=== PATIENT | female | born 1965 | race Caucasian/White ===

== ENCOUNTER 2019-05-05 21:39 | Inpatient (IN) | payer OTHER ==
[~2019-05-05] VITALS: Ht 162.6 cm; Wt 102.8 kg
[2019-05-05 21:43] VITALS: BP 149/104
[2019-05-05 22:24] LABS: BE(vivo) -1.7 mmol/L (-2 to +3); HCO3 25.5 mmol/L (22.0-26.0); PCO2 VENOUS 53.6 mmHg (41.0-51.0); PO2 VENOUS 37.6 mmHg (35.0-45.0)
[2019-05-05 22:36] LABS: ABSOLUTE NEUTROPHILS 9.1 thou/uL (1.4-8.2); BASOPHILS 0.6 % (0.0-2.0); EOSINOPHILS 0.6 % (0.0-3.0); HEMATOCRIT 40.6 % (37.0-47.0); HEMOGLOBIN 12.8 gm/dL (12.0-15.0); LYMPHOCYTES 38.8 % (24.0-44.0); MCH 26.5 pg (26.0-34.0); MCHC 31.6 g/dL (28.0-37.0); PLATELET COUNT 196 thou/uL (150-400); RBC 4.83 mil/uL (4.20-5.00); RDW 16.3 % (10.5-14.5)
[2019-05-05 22:47] LABS: URINE BILIRUBIN NEGATIVE (Negative); URINE BLOOD 1+ (Negative); URINE CLARITY CLEAR; URINE COLOR YELLOW; URINE GLUCOSE-RANDOM* 3+ (Negative); URINE KETONES NEGATIVE (Negative); URINE LEUKOCYTES-REFLEX NEGATIVE (Negative); URINE NITRITE-REFLEX NEGATIVE (Negative); URINE PROTEIN (DIPSTICK) 1+ (Negative); URINE SPECIFIC GRAVITY <= 1.005 (1.005-1.035); URINE UROBILINOGEN 0.2 E.U./dl (0.2-1.0)
[2019-05-05 22:54] LABS: SQUAMOUS 0-3 Few /LPF (0-3)
[2019-05-05 22:55] LABS: BACTERIA-REFLEX 1-9 Few /HPF (None Seen); CASTS None Seen /LPF (None Seen); CRYSTALS None Seen /LPF (None Seen); MUCUS None Seen strn/LPF (None Seen); URINE RBC 0-2 Rare /HPF (0-2); URINE WBC-REFLEX 6-15 Few /HPF (0-5); WBC CLUMPS Occasional (None Seen)
[2019-05-05] MEDS ORDERED: LIPITOR80 MG PO (22:56)
[2019-05-05] MEDS ORDERED: METFORMIN HCL1000 MG PO (22:56)
[2019-05-05] MEDS ORDERED: AMITRIPTYLINE H25 M2 PO (22:57)
[2019-05-05] MEDS ORDERED: SERTRALINE HCL100 MG PO (22:57)
[2019-05-05] MEDS ORDERED: AMARYL4 MG PO (22:57)
[2019-05-05] MEDS ORDERED: LOPRESSOR100 M1 PO (22:58)
[2019-05-05] MEDS ORDERED: LOSARTAN POTAS100 MG PO (22:58)
[2019-05-05] MEDS ORDERED: TOPROL XL100 MG PO (22:59)
[2019-05-05 23:00] LABS: CALCIUM 9.2 mg/dL (8.5-10.1); CREATININE 1.3 mg/dL (0.6-1.0); POTASSIUM 3.3 mmol/L (3.5-5.1); TOTAL BILIRUBIN 0.8 mg/dL (<0.1-1.0); TOTAL PROTEIN 8.8 g/dL (6.4-8.2)
[2019-05-05 23:31] LABS: ANISOCYTOSIS 1+; LARGE PLATELETS FEW
[2019-05-06] VITALS (8 sets, daily range): BP systolic 117–158; BP diastolic 66–90
--- NOTE | 2019-05-06 00:10 | NUR ---
ED NURSE CALLED TO GIVE REPORT TO INPATIENT NURSE AT THIS TIME.
[2019-05-06 06:09] LABS: HEMATOCRIT 33.7 % (37.0-47.0); MCH 26.5 pg (26.0-34.0); MCHC 31.7 g/dL (28.0-37.0); MCV 83.6 fL (80.0-100.0); RBC 4.03 mil/uL (4.20-5.00); RDW 15.8 % (10.5-14.5); WBC 10.7 thou/uL (4.0-11.0)
[2019-05-06 06:22] LABS: HEMOGLOBIN 10.7 gm/dL (12.0-15.0)
--- NOTE | 2019-05-06 06:32 | NUR ---
PT ARRIVED FROM ER VIA CART. PLACED IN ROOM 359. ADMISSION ASSESSMENTS COMPLETED. REPORTEDLY IN AFIB WITH RVR WITH RATES 170'S UPON ARRIVING TO ER. UPON ARRIVAL TO THE FLOOR PT NOTED TO BE IN SINUS RHYTHM WITH RATE 80'S. DID TITRATE OFF CARDIZEM DRIP BY 0330. PT DENIES ANY CHEST PAIN/DISCOMFORT OR SOA.
[2019-05-06 06:41] LABS: ANION GAP 11 mmol/L (7-16); BUN 13 mg/dL (7-18); CALCIUM 8.1 mg/dL (8.5-10.1); CHLORIDE 102 mmol/L (98-107); CHOLESTEROL 152 mg/dL (<200); CO2 26 mmol/L (21-32); CREATININE 0.9 mg/dL (0.6-1.0); GLUCOSE 275 mg/dL (74-106); HDL CHOLESTEROL 27 mg/dL (>40); LDL CHOLESTEROL 60 mg/dL (<100); MAGNESIUM 1.5 mg/dL (1.8-2.4); POTASSIUM 3.7 mmol/L (3.5-5.1); SODIUM 139 mmol/L (136-145); TC:HDL 5.6 Ratio (Not establshd); TRIGLYCERIDE 327 mg/dL (<150); VLDL 65 mg/dL (<40)
--- NOTE | 2019-05-06 07:41 | EKG ---
[address] [place] [address] ELECTROCARDIOGRAM REPORT Name: KYMBERLY CHRISTIAN Room #: 359-P ADM IN M.R.#: [id number] Admission: 05/05/19 Attend Phys: Shanika Khan MD Discharge: Date of : 67 Report #: [id number] THIS REPORT FOR: //name// [facility] ED Test Date: 2019-05-05 Test Time: 21:56:59 Pat Name: KYMBERLY CHRISTIAN Department: Room: 359 Gender: F Turf Manager: KELSIE : 1965 Requested By: Gualberto Ramirez Order Number: [id number] MD: Jerzy Shine Measurements Intervals [place] Rate: 157 P: NM: QRS: 49 QRSD: 85 T: 248 QT: 269 QTc: 435 Interpretive Statements Atrial fibrillation with a rapid ventricular response Repolarization abnormality, prob rate related No previous ECG available for comparison Electronically Signed On 05-06-2019 7:40:44 CDT by Jerzy Shine [email or web address] <ELECTRONICALLY SIGNED> By: Jerzy Shine MD, [facility] 05/06/19 0740 [id number] Jerzy Shine MD, FACC /EPI
--- NOTE | 2019-05-06 07:45 | EKG ---
[address] [place] [address] ELECTROCARDIOGRAM REPORT Name: KYMBERLY CHRISTIAN Room #: 359-P ADM IN M.R.#: [id number] Admission: 05/05/19 Attend Phys: Shanika Khan MD Discharge: Date of : 67 Report #: [id number] THIS REPORT FOR: //name// [facility] Test Date: 2019-05-06 Test Time: 07:42:34 Pat Name: KYMBERLY CHRISTIAN Department: Room: 359 P Gender: F Wall Taper Helper: ROXANA : 1965 Requested By: Marilee Do Order Number: [id number] MD: Jerzy Shine Measurements Intervals [place] Rate: 83 P: 61 SD: 152 QRS: 41 QRSD: 89 T: QT: 379 QTc: 446 Interpretive Statements Sinus rhythm Atrial premature complex Nonspecific ST and T wave abnormality Compared to ECG 05/05/2019 21:56:59 Atrial fibrillation no longer present Electronically Signed On 05-06-2019 7:45:13 CDT by Jerzy Shine [email or web address] <ELECTRONICALLY SIGNED> By: Jerzy Shine MD, [facility] 05/06/19 0745 1 1 Jerzy Shine MD, [facility] /EPI
--- NOTE | 2019-05-06 10:36 | NUR ---
INITIAL ASSESSMENT: Received high risk nursing referral. Pt was admitted from home due to hyperglycemia and Afib. Pt with hx of DM/HTN/CHF/COPD. Pt was placed on a cardizem gtt and is now off. Pt will be on PO NOAC. Awaiting echo results at this time. SW met with pt at bedside. Introduced role of SW. Pt is alert/orientated x 4. Pt reports she lives at home with her and family. Prior to admission, pt was independent with ADLs. Pt does have a rollator walker. Pt states she is interested in getting a scooter for when she is out in the community due to unsteady gait. Pt has a CPAP machine through [facility] [facility] [place]. Pt states she will start seeing Dr. Noemi Ballesteros for primary care. Pt's first appt is on 06/01. SW encouraged pt to work with Dr. Ballesteros's office for obtaining scooter. Pt states she will also need a referral to the sleep lab for an outpatient sleep study. Pt requesting to speak with the oliving machine operator prior to discharge for DM education. Consult placed for oliving machine operator. SW to provide pt with info for [facility] DM support group per pt's request. Pt may discharge home later today. Pt's family will provide transportation home. SW is following to assist as needed with discharge planning.
--- NOTE | 2019-05-06 12:03 | 2DMMODE ---
[facility] [address] [place] [address] 2 D/M-MODE ECHOCARDIOGRAM Name: KYMBERLY CHRISTIAN Room #: 359-P [facility] IN .R.#: [id number] Admission: 05/05/19 Attend Phys: Shanika Khan MD Discharge: Date of : 67 Report #: [id number] THIS REPORT FOR: //name// APPROVED REPORT Study performed: 05/06/2019 10:46:46 EXAM: Comprehensive 2D, Doppler, and color-flow Echocardiogram Patient Location: Echo lab Status: routine BSA: 2.06 HR: 75 bpm BP: 129/66 mmHg Rhythm: Irregular Other Information Study Quality: Adequate Indications Atrial Fibrillation Hx: CHF 2D Dimensions RVDd: 27.19 mm IVSd: 11.17 (7-11mm) LVOT Diam: 21.37 (18-24mm) LVDd: 52.11 mm PWd: 12.11 (7-11mm) Ascending Ao: 32.49 (22-36mm) LVDs: 37.21 (25-40mm) Aortic Root: 33.08 mm IVC: 17.00 mm Volumes Left Atrial Volume (Systole) Single Plane 4CH: 78.42 mL Single Plane 2CH: 56.36 mL LA ESV Index: 36.00 mL/m2 Aortic Valve AoV Peak Fidencio.: 1.60 m/s AO Peak Gr.: 10.23 mmHg LVOT Max P.41 mmHg LVOT Max V: 1.16 m/s ANITHA Vmax: 2.61 cm2 Mitral Valve E/A Ratio: 1.3 MV Decel. Time: 183.87 ms [facility] [address] [place] [address] 2 D/M-MODE ECHOCARDIOGRAM Name: KYMBERLY CHRISTIAN Room #: 359-P [facility] IN [facility]#: [id number] Admission: 05/05/19 Attend Phys: Shanika Khan MD Discharge: Date of : 67 Report #: [id number] MV E Max Fidencio.: 1.19 m/s MV A Fidencio.: 0.95 m/s MV PHT: 53.32 ms IVRT: 78.43 ms Pulmonary Valve PV Peak Fidencio.: 0.92 m/s PV Peak Gr.: 3.37 mmHg Pulmonary Vein P Vein S: 0.58 m/s P Vein A: 0.21 m/s P Vein D: 0.47 m/s P Vein A Dur.: 115.3 msec P Vein S/D Ratio: 1.23 Tricuspid Valve TR Peak Fidencio.: 3.01 m/s RAP Estimate: 5.00 mmHg TR Peak Gr.: 36.26 mmHg PA Pressure: 41.00 mmHg Left Ventricle The left ventricle is normal size. There is normal left ventricular wall thickness. The left ventricular systolic function is normal. The left ventricular ejection fraction is within the normal range. LVEF is 55-60%. Left ventricular filling pattern is normal for age. Right Ventricle The right ventricle is normal size. The right ventricular systolic function is normal. Atria Left atrium is mildly dilated. The right atrium size is normal. Aortic Valve The aortic valve is normal in structure. No aortic regurgitation is present. There is no aortic valvular stenosis. Mitral Valve The mitral valve is normal in structure. Trace to mild mitral regurgitation. No evidence of mitral valve stenosis. Tricuspid Valve The tricuspid valve is normal in structure. Mild tricuspid regurgitation. Estimated PAP is 41mmHg. Pulmonic Valve The pulmonary valve is normal in structure. Mild pulmonic [facility] [address] [place] [address] 2 D/M-MODE ECHOCARDIOGRAM Name: KYMBERLY CHRISTIAN Room #: 359-P [facility] IN M.R.#: [id number] Admission: 05/05/19 Attend Phys: Shanika Khan MD Discharge: Date of : 67 Report #: [id number] regurgitation. Great Vessels The aortic root is normal in size. The ascending aorta is normal in size. IVC is normal in size and collapses >50% with inspiration. Pericardium There is no pericardial effusion. <Conclusion> The left ventricle is normal size. LVEF is 55-60%. Left atrium is mildly dilated. The aortic valve is normal in structure. The mitral valve is normal in structure. Trace to mild mitral regurgitation. The tricuspid valve is normal in structure. Mild tricuspid regurgitation. Estimated PAP is 41mmHg. The pulmonary valve is normal in structure. Mild pulmonic regurgitation. There is no pericardial effusion. <ELECTRONICALLY SIGNED> By: Antwon Spain MD 05/06/191202 02 02 Antwon Spain MD /INF
[2019-05-06] MEDS ORDERED: TOPROL XL100 MG PO (13:21)
--- NOTE | 2019-05-06 16:49 | NUR ---
Assumed care approx. 0700 this AM. Discharge orders obtained. Diabetic eduactional support group info given to patient by CM, and a dietitian met with the patient to discuss meal options for a controlled diabetic diet. Maintenance fluids dc'd this AM per orders. Blood sugars controlled with sliding scale insulin. IV and tele dc'd. Discharge packet discussed with patient along with importance of following a diabetic diet. Patient instructed to follow up with PCP and Dr. Perez's office-pt stated she plans to do both. paged as the patient was concerned that the discharge packet states to discontinue losartan. stated that the patient can continue her losartan as before and to take it if her SBP >120-- Instructions passed on to patient. Patient left approx. 1645 with volunteer in wheelchair- downstairs to take patient home.
[2019-05-07 07:11] LABS: GLYCOHEMOGLOBIN (HGB A1C) 12.1 % (4.8-5.6)
== END 2019-05-06 16:45 | disposition home or self-care (01) | DRG 682 ==
LOC: ER 21:39 → EROBS 23:55 → 3W 23:55 → ENTRNSPT 05-06 16:37 → 3W 05-06 16:45
PROVIDERS: Nurse Practitioner Family; Physician Assistant; ADMIT Internal Medicine
PROC: 5A09357 Assistance with Respiratory Ventilation, Less than 24 Consecutive Hours, Continuous Positive Airway Pressure (ICD-10-PCS; principal; 2019-05-06)
DX: N17.9 Acute kidney failure, unspecified (principal); E11.10 Type 2 diabetes mellitus with ketoacidosis without coma; G61.0 Guillain-Barre syndrome; I13.0 Hypertensive heart and chronic kidney disease with heart failure and stage 1 through stage 4 chronic kidney disease, or unspecified chronic kidney disease; E11.65 Type 2 diabetes mellitus with hyperglycemia; E78.5 Hyperlipidemia, unspecified; I48.0 Paroxysmal atrial fibrillation; I50.9 Heart failure, unspecified; N18.9 Chronic kidney disease, unspecified; J44.9 Chronic obstructive pulmonary disease, unspecified; E11.22 Type 2 diabetes mellitus with diabetic chronic kidney disease; I25.10 Atherosclerotic heart disease of native coronary artery without angina pectoris; F41.9 Anxiety disorder, unspecified; G47.33 Obstructive sleep apnea (adult) (pediatric); Z95.5 Presence of coronary angioplasty implant and graft; Z79.84 Long term (current) use of oral hypoglycemic drugs; Z79.899 Other long term (current) drug therapy; Z88.0 Allergy status to penicillin; Z88.2 Allergy status to sulfonamides; Z88.8 Allergy status to other drugs, medicaments and biological substances; Z83.49 Family history of other endocrine, nutritional and metabolic diseases; Z80.8 Family history of malignant neoplasm of other organs or systems